=== PATIENT | female | born 1980 | race Caucasian/White ===

== ENCOUNTER → 2017-03-21 | Outpatient (CLI) | payer OTHER ==
[~2017-03-21] MED LIST: ANUSOL-HC25 MG RC; AUGMENTIN 875 M1 TAB PO; BUPROPION XL300 MG PO; BUT/APAP/CAFF/C1 CAP PO; CIPRO500 MG PO; CLARITIN10 MG PO; MOTRIN800 MG PO; Motrin,Rufen800 MG PO; NAPROSYN500 MG PO; PROPRANOLOL HCL10 MG PO; PROZAC20 MG PO; ZITHROMAX Z PA250 MG PO; [UNRECOGNIZED DRUG - OTHER] PO
== END ==
LOC: MRI 14:45
DX: E27.9 Disorder of adrenal gland, unspecified (principal)

== ENCOUNTER 2017-03-26 09:24 | Emergency (ER) | payer OTHER ==
[~2017-03-26] VITALS: Wt 95.3 kg
[2017-03-26 09:35] VITALS: BP 164/94
[2017-03-26] MEDS ORDERED: CLINDAMYCIN HC300 MG PO (09:44)
[2017-03-26] MEDS ORDERED: LIDEX 0.05% CRE15 GM T (09:44)
== END 2017-03-26 09:49 | disposition home or self-care (01) ==
LOC: ED 09:24
DX: S50.861A Insect bite (nonvenomous) of right forearm, initial encounter (principal); L03.113 Cellulitis of right upper limb; F17.200 Nicotine dependence, unspecified, uncomplicated; Z88.0 Allergy status to penicillin; X58.XXXA Exposure to other specified factors, initial encounter; Y93.9 Activity, unspecified; Y92.9 Unspecified place or not applicable; Y99.9 Unspecified external cause status

== ENCOUNTER → 2017-04-24 | Outpatient (CLI) | payer OTHER ==
[~2017-04-24] MED LIST changes: +CLINDAMYCIN HC300 MG PO; +LIDEX 0.05% CRE15 GM T
[2017-04-25 07:06] LABS: RHEUMATOID ARTHRITIS FACTOR 11.3 IU/mL (0.0-13.9)
[2017-04-25 17:11] LABS: LYME AB/TOTAL IMMUNOGLOBULINS <0.91 ISR (0.00-0.90)
== END | disposition home or self-care (01) ==
LOC: LAB 14:21
PROVIDERS: Family Medicine
DX: E55.9 Vitamin D deficiency, unspecified (principal); M25.50 Pain in unspecified joint; M79.1 Myalgia

== ENCOUNTER → 2017-05-30 | Outpatient (CLI) | payer OTHER | END | disposition home or self-care (01) | LOC: RAD 14:26 | DX: M54.5 Low back pain (principal) ==

== ENCOUNTER → 2018-01-08 | Outpatient (CLI) | payer OTHER | END | disposition home or self-care (01) | LOC: RAD 15:56 | DX: R05 Cough (principal); F17.200 Nicotine dependence, unspecified, uncomplicated ==

== ENCOUNTER → 2018-04-15 | Outpatient (CLI) | payer OTHER | END | disposition home or self-care (01) | LOC: US 04-12 09:30 | DX: K76.0 Fatty (change of) liver, not elsewhere classified (principal) ==

== ENCOUNTER → 2018-05-30 | Outpatient (CLI) | payer OTHER ==
[2018-05-31 14:10] LABS: EPSTEIN-BARR VCA IGM AB <36.0 U/mL (0.0-35.9)
== END | disposition home or self-care (01) ==
LOC: LAB 11:04
PROVIDERS: Family Medicine
DX: R53.83 Other fatigue (principal)

== ENCOUNTER → 2018-10-15 | Outpatient (CLI) | payer OTHER | END | disposition home or self-care (01) | LOC: RAD 15:26 | DX: S39.92XA Unspecified injury of lower back, initial encounter (principal); M53.3 Sacrococcygeal disorders, not elsewhere classified; M54.5 Low back pain; X58.XXXA Exposure to other specified factors, initial encounter; Y93.89 Activity, other specified; Y92.89 Other specified places as the place of occurrence of the external cause; Y99.8 Other external cause status ==

== ENCOUNTER → 2018-11-12 | Outpatient (CLI) | payer OTHER ==
[2018-11-12 13:14] LABS: HEMATOCRIT 47.6 % (37.0-47.0); HEMOGLOBIN 16.1 g/dl (12.0-16.0); MEAN CELL VOLUME 92.1 fl (81.0-99.0); MEAN CORPUSCULAR HGB 31.1 pg (27.0-31.0); MEAN CORPUSCULAR HGB CONC 33.8 g/dl (33.0-37.0); MEAN PLATELET VOLUME 11.5 fl (9.6-12.3); RED BLOOD COUNT 5.17 10*6/uL (4.10-5.10); RED CELL DISTRI WIDTH 13.3 % (0-14.5); WHITE BLOOD COUNT 10.4 10*3/uL (4.8-10.8)
[2018-11-12 13:29] LABS: ALBUMIN 3.8 gm/dl (3.1-4.5); ALKALINE PHOSPHATASE 76 U/L (45-117); BUN 9 mg/dl (7-24); CHLORIDE 112 mmol/L (98-107); CPK 38 U/L (26-192); CREATININE 0.68 mg/dL (0.55-1.02); POTASSIUM 3.7 mmol/L (3.5-5.1); SGOT/AST 6 IU/L (3-35); SGPT/ALT 17 U/L (12-78); SODIUM 143 mmol/L (136-145); TOTAL PROTEIN 7.8 gm/dL (6.4-8.2)
[2018-11-13 08:12] LABS: RHEUMATOID ARTHRITIS FACTOR 12.4 IU/mL (0.0-13.9)
[2018-11-13 22:05] LABS: TESTOSTERONE FREE, (DIRECT) 1.1 pg/mL (0.0-4.2)
== END | disposition home or self-care (01) ==
LOC: LAB 12:38
PROVIDERS: Family Medicine
DX: E55.9 Vitamin D deficiency, unspecified (principal); M25.569 Pain in unspecified knee; M54.9 Dorsalgia, unspecified; R63.5 Abnormal weight gain; R53.83 Other fatigue

== ENCOUNTER 2018-12-31 17:55 | Emergency (ER) | payer OTHER ==
[~2018-12-31] VITALS: Ht 172.7 cm; Wt 111.1 kg
[2018-12-31 17:59] VITALS: BP 135/78
[2018-12-31] MEDS ORDERED: DULOXETINE HCL30 MG PO (18:05)
[2018-12-31] MEDS ORDERED: TOPIRAMATE50 M2 PO (18:05)
[2018-12-31] MEDS ORDERED: LYRICA150 M1 PO (18:05)
[2018-12-31] MEDS ORDERED: SEPTDS PO (18:15)
== END 2018-12-31 18:28 | disposition home or self-care (01) ==
LOC: ED 17:55
DX: L02.411 Cutaneous abscess of right axilla (principal); L73.2 Hidradenitis suppurativa; H60.01 Abscess of right external ear; L02.811 Cutaneous abscess of head [any part, except face]; Z88.0 Allergy status to penicillin; Z79.899 Other long term (current) drug therapy

== ENCOUNTER 2019-08-17 02:03 | Emergency (ER) | payer OTHER ==
[~2019-08-17] VITALS: Ht 172.7 cm; Wt 113.4 kg
[~2019-08-17 02:03] MED LIST changes: +DULOXETINE HCL30 MG PO; +LYRICA150 M1 PO; +SEPTDS PO; +TOPIRAMATE50 M2 PO
[2019-08-17 02:05] VITALS: BP 158/92
[2019-08-17 03:09] LABS: BASO # 0.1 10*3/uL (0.0-0.1); BASO % 0.5 % (0.0-1.0); EOS # 0.5 10*3/uL (0.0-0.4); EOS % 5.5 % (1.0-4.0); HEMOGLOBIN 14.5 g/dl (12.0-16.0); LYMPH # 1.3 10*3/uL (1.3-4.4); LYMPH % 13.4 % (27.0-41.0); MEAN CELL VOLUME 93.8 fl (81.0-99.0); MEAN CORPUSCULAR HGB 30.2 pg (27.0-31.0); MEAN CORPUSCULAR HGB CONC 32.2 g/dl (33.0-37.0); MEAN PLATELET VOLUME 10.8 fl (9.6-12.3); MONO # 0.8 10*3/uL (0.1-1.0); MONO % 7.9 % (3.0-9.0); NEUT % 72.4 % (47.0-73.0); PLATELET COUNT AUTOMATED 232 10*3/uL (130-400); WHITE BLOOD COUNT 9.7 10*3/uL (4.8-10.8)
[2019-08-17 03:21] LABS: BUN 8 mg/dl (7-24); CHLORIDE 106 mmol/L (98-107); CREATININE 0.62 mg/dL (0.55-1.02); POTASSIUM 4.1 mmol/L (3.5-5.1); SODIUM 140 mmol/L (136-145)
[2019-08-17] MEDS ORDERED: ZOFRAN4 MG PO (03:34)
[2019-08-17] MEDS ORDERED: IMITREX100 MG PO (03:34)
[2019-08-17] MEDS ORDERED: Motrin,Rufen800 MG PO (03:34)
== END 2019-08-17 03:54 | disposition home or self-care (01) ==
LOC: ED 02:03
PROVIDERS: Emergency Medicine Emergency Medical Services
DX: G43.909 Migraine, unspecified, not intractable, without status migrainosus (principal); M54.9 Dorsalgia, unspecified; Z88.0 Allergy status to penicillin; Z79.899 Other long term (current) drug therapy; Z87.891 Personal history of nicotine dependence

== ENCOUNTER → 2019-08-26 | Outpatient (CLI) | payer OTHER ==
[~2019-08-26] MED LIST changes: +IMITREX100 MG PO; +ZOFRAN4 MG PO
== END | disposition home or self-care (01) ==
LOC: CARD 11:52
DX: R06.02 Shortness of breath (principal); R53.83 Other fatigue

== ENCOUNTER → 2020-08-03 | Outpatient (CLI) | payer OTHER ==
[2020-08-03 13:38] LABS: HEMATOCRIT 49.5 % (37.0-47.0); MEAN CELL VOLUME 88.1 fl (81.0-99.0); MEAN CORPUSCULAR HGB 28.8 pg (27.0-31.0); MEAN CORPUSCULAR HGB CONC 32.7 g/dl (33.0-37.0); MEAN PLATELET VOLUME 11.1 fl (9.6-12.3); RED BLOOD COUNT 5.62 10*6/uL (4.10-5.10); RED CELL DISTRI WIDTH 14.7 % (0-14.5); WHITE BLOOD COUNT 10.2 10*3/uL (4.8-10.8)
[2020-08-03 13:53] LABS: ALBUMIN 3.4 gm/dl (3.1-4.5); ALKALINE PHOSPHATASE 83 U/L (45-117); BUN 9 mg/dl (7-24); CHLORIDE 108 mmol/L (98-107); CHOLESTEROL 157 mg/dL (<200); CREATININE 0.67 mg/dL (0.55-1.02); FREE T4 0.83 ng/dl (0.76-1.46); HDL CHOLESTEROL 45 mg/dl (40-60); LDL CHOLESTEROL 83 mg/dL (9-159); POTASSIUM 3.9 mmol/L (3.5-5.1); SGOT/AST 9 IU/L (3-35); SGPT/ALT 16 U/L (12-78); SODIUM 141 mmol/L (136-145); TOTAL PROTEIN 7.4 gm/dL (6.4-8.2); TRIGLYCERIDES 145 mg/dl (<150); VLDL CHOLESTEROL 29 mg/dL (6-40)
[2020-08-03 14:32] LABS: VITAMIN D, 25-HYDROXY 12.9 ng/mL (30-100)
== END | disposition home or self-care (01) ==
LOC: LAB 13:15
PROVIDERS: ATTEND Family Medicine
DX: E55.9 Vitamin D deficiency, unspecified (principal); R53.83 Other fatigue; R60.0 Localized edema; R25.2 Cramp and spasm

== ENCOUNTER 2022-02-12 00:34 | Emergency (ER) | payer OTHER ==
[~2022-02-12] VITALS: Ht 175.2 cm
[2022-02-12 00:34] VITALS: BP 152/84
[2022-02-12] MEDS ORDERED: BUSPAR5 MG PO (00:52)
[2022-02-12 01:37] LABS: HEMATOCRIT 50.6 % (37.0-47.0); MEAN CELL VOLUME 89.2 fl (81.0-99.0); MEAN CORPUSCULAR HGB 30.2 pg (27.0-31.0); MEAN CORPUSCULAR HGB CONC 33.8 g/dl (33.0-37.0); MEAN PLATELET VOLUME 11.7 fl (9.6-12.3); PLATELET COUNT AUTOMATED 207 10*3/uL (130-400); RED BLOOD COUNT 5.67 10*6/uL (4.10-5.10); RED CELL DISTRI WIDTH 13.3 % (0-14.5); WHITE BLOOD COUNT 15.7 10*3/uL (4.8-10.8)
[2022-02-12 01:38] LABS: BILIRUBIN Negative (Negative); BLOOD 2+ (Negative); CLARITY Clear (Clear); COLOR Yellow (Yellow); GLUCOSE Negative (Negative); KETONE 4+ (Negative); LEUKO ESTERASE Negative (Negative); NITRITE Negative (Negative); SPECIFIC GRAVITY 1.025 (1.001-1.030)
[2022-02-12 01:42] LABS: MANUAL DIFF REFLEX YES
[2022-02-12 01:51] LABS: BUN 10 mg/dl (7-24); CHLORIDE 105 mmol/L (98-107); POTASSIUM 3.4 mmol/L (3.5-5.1); SODIUM 139 mmol/L (136-145)
[2022-02-12 02:06] LABS: BACTERIA 1+
[2022-02-12] MEDS ORDERED: FLOMAX0.4 MG PO (02:14)
[2022-02-12] MEDS ORDERED: ZOFRAN4 MG PO (02:14)
[2022-02-12 02:26] LABS: PLATELET SUFFICIENCY NORMAL (NORMAL); TOTAL CELLS COUNTED 100 #CELLS
[2022-02-12 02:27] LABS: OVALOCYTES FEW
== END 2022-02-12 02:18 | disposition home or self-care (01) ==
LOC: ED 00:34
PROVIDERS: Internal Medicine
DX: N13.2 Hydronephrosis with renal and ureteral calculous obstruction (principal); E87.6 Hypokalemia; Z88.0 Allergy status to penicillin; Z79.899 Other long term (current) drug therapy

== ENCOUNTER → 2022-03-10 | Outpatient (CLI) | payer OTHER ==
[~2022-03-10] MED LIST changes: +BUSPAR5 MG PO; +FLOMAX0.4 MG PO
[2022-03-10 13:21] LABS: BASO % 0.4 % (0.0-1.0); EOS # 0.1 10*3/uL (0.0-0.4); EOS % 1.5 % (1.0-4.0); LYMPH % 23.1 % (27.0-41.0); MEAN CELL VOLUME 88.5 fl (81.0-99.0); MEAN CORPUSCULAR HGB 29.5 pg (27.0-31.0); MEAN CORPUSCULAR HGB CONC 33.3 g/dl (33.0-37.0); MEAN PLATELET VOLUME 11.6 fl (9.6-12.3); MONO # 0.7 10*3/uL (0.1-1.0); MONO % 8.2 % (3.0-9.0); NEUT # 5.6 10*3/uL (2.3-7.9); NEUT % 66.7 % (47.0-73.0); PLATELET COUNT AUTOMATED 233 10*3/uL (130-400); RED BLOOD COUNT 5.76 10*6/uL (4.10-5.10); RED CELL DISTRI WIDTH 13.2 % (0-14.5); WHITE BLOOD COUNT 8.4 10*3/uL (4.8-10.8)
[2022-03-10 13:37] LABS: ALKALINE PHOSPHATASE 74 U/L (45-117); BUN 17 mg/dl (7-24); CHLORIDE 108 mmol/L (98-107); CREATININE 0.88 mg/dL (0.55-1.02); POTASSIUM 4.2 mmol/L (3.5-5.1); SGOT/AST 7 IU/L (3-35); SGPT/ALT 17 U/L (12-78); SODIUM 139 mmol/L (136-145); TOTAL PROTEIN 7.4 gm/dL (6.4-8.2)
[2022-03-13 16:07] LABS: CREATININE, RANDOM URINE 82.2 mg/dL (Not Estab.)
[2022-03-13 16:07] LABS: CREATININE, RANDOM URINE 87.4 mg/dL (Not Estab.)
[2022-03-16 19:06] LABS: METANEPHRINE, PLASMA <10.0 pg/mL (0.0-88.0); NORMETANEPHRINE, PLASMA 125.5 pg/mL (0.0-210.1)
[2022-03-18 00:06] LABS: VMA RANDOM 2.5 mg/L (Undefined)
== END | disposition home or self-care (01) ==
LOC: LAB 12:13
PROVIDERS: ATTEND Urology
DX: E27.9 Disorder of adrenal gland, unspecified (principal)

== ENCOUNTER → 2022-03-24 | Outpatient (CLI) | payer OTHER ==
[2022-03-24 10:06] LABS: BASO % 0.3 % (0.0-1.0); EOS # 0.1 10*3/uL (0.0-0.4); EOS % 1.5 % (1.0-4.0); HEMATOCRIT 48.5 % (37.0-47.0); LYMPH # 1.2 10*3/uL (1.3-4.4); LYMPH % 16.2 % (27.0-41.0); MEAN CELL VOLUME 88.2 fl (81.0-99.0); MEAN CORPUSCULAR HGB 29.5 pg (27.0-31.0); MEAN CORPUSCULAR HGB CONC 33.4 g/dl (33.0-37.0); MEAN PLATELET VOLUME 11.3 fl (9.6-12.3); MONO # 0.6 10*3/uL (0.1-1.0); MONO % 8.4 % (3.0-9.0); NEUT # 5.2 10*3/uL (2.3-7.9); NEUT % 73.2 % (47.0-73.0); PLATELET COUNT AUTOMATED 209 10*3/uL (130-400); RED CELL DISTRI WIDTH 12.9 % (0-14.5); WHITE BLOOD COUNT 7.2 10*3/uL (4.8-10.8)
[2022-03-24 10:15] LABS: BILIRUBIN Negative (Negative); BLOOD Negative (Negative); CLARITY Clear (Clear); COLOR Yellow (Yellow); GLUCOSE Negative (Negative); KETONE Negative (Negative); LEUKO ESTERASE Negative (Negative); NITRITE Negative (Negative); SPECIFIC GRAVITY >= 1.030 (1.001-1.030); UROBILINOGEN 0.2 E.U./dl (0.0-1.0)
[2022-03-24 10:26] LABS: ALKALINE PHOSPHATASE 78 U/L (45-117); BUN 17 mg/dl (7-24); CHLORIDE 110 mmol/L (98-107); CREATININE 0.88 mg/dL (0.55-1.02); POTASSIUM 4.5 mmol/L (3.5-5.1); SGOT/AST 10 IU/L (3-35); SGPT/ALT 15 U/L (12-78); SODIUM 139 mmol/L (136-145); T3 UPTAKE 33 % (31-39); TOTAL PROTEIN 7.2 gm/dL (6.4-8.2)
[2022-03-24 10:59] LABS: BACTERIA 2+
[2022-03-27 16:07] LABS: CREATININE, RANDOM URINE 140.2 mg/dL (Not Estab.)
[2022-03-27 16:07] LABS: CREATININE, RANDOM URINE 134.7 mg/dL (Not Estab.)
[2022-04-03 17:06] LABS: METANEPHRINE, PLASMA 13.3 pg/mL (0.0-88.0); NORMETANEPHRINE, PLASMA 88.1 pg/mL (0.0-210.1)
[2022-04-06 12:08] LABS: VMA RANDOM 2.9 mg/L (Undefined)
== END | disposition home or self-care (01) ==
LOC: LAB 09:20
PROVIDERS: ATTEND Urology
DX: R53.83 Other fatigue (principal); N20.0 Calculus of kidney; R31.9 Hematuria, unspecified

== ENCOUNTER → 2022-03-31 | Outpatient (CLI) | payer OTHER | END | disposition home or self-care (01) | LOC: US 03-29 15:00 | PROVIDERS: ATTEND Urology | DX: N20.0 Calculus of kidney (principal) ==

== ENCOUNTER → 2022-04-17 | Outpatient (CLI) | payer OTHER | END | disposition home or self-care (01) | LOC: CT 14:39 | PROVIDERS: ATTEND Urology | DX: N13.30 Unspecified hydronephrosis (principal); N20.0 Calculus of kidney; D35.02 Benign neoplasm of left adrenal gland ==

== ENCOUNTER → 2022-08-04 | Outpatient (CLI) | payer OTHER | END | disposition home or self-care (01) | LOC: US 08:16 | PROVIDERS: ATTEND Urology | DX: E27.8 Other specified disorders of adrenal gland (principal); N32.89 Other specified disorders of bladder; N20.0 Calculus of kidney ==

== ENCOUNTER → 2022-08-28 | Outpatient (CLI) | payer OTHER | LOC: LAB 08:07 | PROVIDERS: ATTEND Internal Medicine Endocrinology, Diabetes & Metabolism | DX: E24.9 Cushing's syndrome, unspecified (principal) ==

== ENCOUNTER → 2022-08-29 | Outpatient (CLI) | payer OTHER | LOC: LAB 07:57 | PROVIDERS: ATTEND Internal Medicine Endocrinology, Diabetes & Metabolism | DX: E27.9 Disorder of adrenal gland, unspecified (principal); E03.9 Hypothyroidism, unspecified ==

== ENCOUNTER → 2023-04-07 | Outpatient (CLI) | payer OTHER ==
[2023-04-07 08:44] LABS: MEAN CELL VOLUME 90.7 fl (81.0-99.0); MEAN CORPUSCULAR HGB 30.4 pg (27.0-31.0); MEAN CORPUSCULAR HGB CONC 33.5 g/dl (33.0-37.0); MEAN PLATELET VOLUME 11.2 fl (9.6-12.3); RED BLOOD COUNT 5.29 10*6/uL (4.10-5.10); RED CELL DISTRI WIDTH 12.4 % (0-14.5); WHITE BLOOD COUNT 6.1 10*3/uL (4.8-10.8)
[2023-04-07 09:20] LABS: ALKALINE PHOSPHATASE 74 U/L (46-116); BUN 13 mg/dl (9-23); CHLORIDE 107 mmol/L (98-107); CHOLESTEROL 163 mg/dL (<200); FREE T4 0.95 ng/dl (0.89-1.76); LDL CHOLESTEROL 98 mg/dL (9-159); POTASSIUM 4.4 mmol/L (3.4-5.1); SGPT/ALT 12 U/L (10-49); THYROID STIM HORMONE (HS) 3.208 uIU/ml (0.550-4.780); TOTAL PROTEIN 6.6 gm/dL (6.0-8.0); TRIGLYCERIDES 136 mg/dl (<150)
== END | disposition home or self-care (01) ==
LOC: LAB 08:29
PROVIDERS: ATTEND Family Medicine
DX: Z13.220 Encounter for screening for lipoid disorders (principal); M54.50 Low back pain, unspecified; R60.9 Edema, unspecified; R63.5 Abnormal weight gain

== ENCOUNTER → 2023-06-19 | Outpatient (CLI) | payer OTHER | END | disposition home or self-care (01) | LOC: US 00:31 | PROVIDERS: ATTEND Family Medicine | DX: D35.02 Benign neoplasm of left adrenal gland (principal); M47.817 Spondylosis without myelopathy or radiculopathy, lumbosacral region ==

== ENCOUNTER → 2024-08-11 | Outpatient (CLI) | payer OTHER ==
[2024-08-11 18:08] LABS: MEAN CELL VOLUME 86.8 fl (81.0-99.0); MEAN CORPUSCULAR HGB 28.9 pg (27.0-31.0); MEAN CORPUSCULAR HGB CONC 33.3 g/dl (33.0-37.0); MEAN PLATELET VOLUME 11.5 fl (9.6-12.3); RED BLOOD COUNT 5.99 10*6/uL (4.10-5.10); RED CELL DISTRI WIDTH 15.6 % (0-14.5); WHITE BLOOD COUNT 9.6 10*3/uL (4.8-10.8)
[2024-08-11 18:38] LABS: VITAMIN D, 25-HYDROXY 13.8 ng/mL (30-100)
[2024-08-11 19:00] LABS: ALKALINE PHOSPHATASE 96 U/L (46-116); BUN 12 mg/dl (9-23); CHLORIDE 104 mmol/L (98-107); CHOLESTEROL 171 mg/dL (<200); FREE T4 0.95 ng/dl (0.89-1.76); LDL CHOLESTEROL 100 mg/dL (9-159); POTASSIUM 3.7 mmol/L (3.4-5.1); SGPT/ALT 7 U/L (5-49); TOTAL PROTEIN 6.9 gm/dL (6.0-8.0); TRIGLYCERIDES 139 mg/dl (<150)
== END | disposition home or self-care (01) ==
LOC: LAB 17:52
PROVIDERS: ATTEND Family Medicine
DX: Z00.01 Encounter for general adult medical examination with abnormal findings (principal); E78.00 Pure hypercholesterolemia, unspecified; R53.83 Other fatigue

== ENCOUNTER 2024-12-02 19:14 | Emergency (ER) | payer OTHER ==
[~2024-12-02] VITALS: Ht 172.7 cm; Wt 109.0 kg
[2024-12-02] MEDS ORDERED: ALBUTEROL 8 GM INHALER INH ONE (19:50)
[2024-12-02] MEDS ORDERED: ASPIRIN, CHEWABLE 81 MG TAB PO ONE (19:55)
[2024-12-02 20:29] LABS: BASO % 0.4 % (0.0-1.0); EOS # 0.2 10*3/uL (0.0-0.4); EOS % 3.2 % (1.0-4.0); HEMATOCRIT 49.7 % (37.0-47.0); MEAN CELL VOLUME 86.3 fl (81.0-99.0); MEAN CORPUSCULAR HGB 28.1 pg (27.0-31.0); MEAN CORPUSCULAR HGB CONC 32.6 g/dl (33.0-37.0); MEAN PLATELET VOLUME 11.5 fl (9.6-12.3); MONO # 0.6 10*3/uL (0.1-1.0); MONO % 10.6 % (3.0-9.0); NEUT # 3.3 10*3/uL (2.3-7.9); NEUT % 58.4 % (47.0-73.0); PLATELET COUNT AUTOMATED 216 10*3/uL (130-400); RED BLOOD COUNT 5.76 10*6/uL (4.10-5.10); RED CELL DISTRI WIDTH 13.7 % (0-14.5); WHITE BLOOD COUNT 5.6 10*3/uL (4.8-10.8)
[2024-12-02 20:40] LABS: ACT PARTIAL THROMBO TIME 27.7 SECONDS (20.0-32.1)
[2024-12-02] MEDS ORDERED: Ketorolac Tromethamine 60 MG/2 ML VIAL IM ONE (20:45)
[2024-12-02 20:47] LABS: ALKALINE PHOSPHATASE 82 U/L (46-116); BUN 9 mg/dl (9-23); CHLORIDE 106 mmol/L (98-107); POTASSIUM 3.3 mmol/L (3.4-5.1); TOTAL PROTEIN 7.1 gm/dL (6.0-8.0)
[2024-12-02 20:48] LABS: SGPT/ALT < 7 U/L (5-49)
[2024-12-02] MEDS ORDERED: POTASSIUM CHLORIDE 20 MEQ TAB PO ONE (21:10)
[2024-12-02 21:23] VITALS: BP 155/88
[2024-12-02] MEDS ORDERED: Albuterol Sulfate 2.5 MG/3 ML VIAL NEB ONE (22:05)
[2024-12-02] MEDS ORDERED: predniSONE 20 MG TAB PO ONE (23:15)
[2024-12-02] MEDS ORDERED: Doxycycline Hyclate 100 MG 2 TAB ED PACK PO SCH (23:15)
[2024-12-02] MEDS ORDERED: VIBRAMYCIN100 MG PO (23:45)
[2024-12-02] MEDS ORDERED: PREDNISONE20 M1 PO (23:45)
== END 2024-12-02 23:41 | disposition home or self-care (01) ==
LOC: ED 19:14
PROVIDERS: Nurse Practitioner
DX: J40 Bronchitis, not specified as acute or chronic (principal); Z20.822 Contact with and (suspected) exposure to COVID-19; E87.5 Hyperkalemia; N76.4 Abscess of vulva; Z88.0 Allergy status to penicillin; Z79.899 Other long term (current) drug therapy

== ENCOUNTER 2025-02-11 18:17 | Emergency (ER) | payer OTHER ==
[~2025-02-11] VITALS: Wt 108.9 kg
[~2025-02-11 18:17] MED LIST changes: +PREDNISONE20 M1 PO; +VIBRAMYCIN100 MG PO
[2025-02-11] MEDS ORDERED: methylPREDNISolone sod succ 125 MG VIAL IM ONE (18:40)
[2025-02-11] MEDS ORDERED: Albuterol Sulf/Ipratropium 3 ML VIAL NEB ONE (18:40)
[2025-02-11 19:07] LABS: BASO % 0.3 % (0.0-1.0); EOS # 0.1 10*3/uL (0.0-0.4); EOS % 1.5 % (1.0-4.0); HEMATOCRIT 45.6 % (37.0-47.0); MEAN CELL VOLUME 87.2 fl (81.0-99.0); MEAN CORPUSCULAR HGB 27.5 pg (27.0-31.0); MEAN CORPUSCULAR HGB CONC 31.6 g/dl (33.0-37.0); MEAN PLATELET VOLUME 10.8 fl (9.6-12.3); MONO # 0.9 10*3/uL (0.1-1.0); MONO % 11.7 % (3.0-9.0); NEUT # 5.5 10*3/uL (2.3-7.9); PLATELET COUNT AUTOMATED 201 10*3/uL (130-400); RED BLOOD COUNT 5.23 10*6/uL (4.10-5.10); RED CELL DISTRI WIDTH 15.5 % (0-14.5)
[2025-02-11] MEDS ORDERED: PREGABALIN150 MG PO (19:17)
[2025-02-11] MEDS ORDERED: AIRSUPRA 90-810.7 GM INH (19:17)
[2025-02-11] MEDS ORDERED: HYDRALAZINE HYD50 MG PO (19:18)
[2025-02-11] MEDS ORDERED: LOSARTAN POTAS100 M1 PO (19:18)
[2025-02-11] MEDS ORDERED: BUMETANIDE2 MG PO (19:18)
[2025-02-11 19:26] LABS: BUN 13 mg/dl (9-23); CHLORIDE 106 mmol/L (98-107); POTASSIUM 3.5 mmol/L (3.4-5.1)
[2025-02-11 19:27] LABS: B-hCG (QUALITATIVE) NEGATIVE (NEGATIVE)
[2025-02-11 19:57] VITALS: BP 117/73
[2025-02-11] MEDS ORDERED: PREDNISONE10 MG PO (20:46)
== END 2025-02-11 20:52 | disposition home or self-care (01) ==
LOC: ED 18:17
PROVIDERS: Physician Assistant Medical
DX: J20.9 Acute bronchitis, unspecified (principal); I10 Essential (primary) hypertension; K21.9 Gastro-esophageal reflux disease without esophagitis; G43.909 Migraine, unspecified, not intractable, without status migrainosus; R60.0 Localized edema; M25.512 Pain in left shoulder; F17.200 Nicotine dependence, unspecified, uncomplicated; Z87.442 Personal history of urinary calculi; Z88.0 Allergy status to penicillin; Z98.51 Tubal ligation status; Z98.890 Other specified postprocedural states

== ENCOUNTER → 2025-02-23 | Outpatient (CLI) | payer OTHER ==
[~2025-02-23] MED LIST changes: +AIRSUPRA 90-810.7 GM INH; +BUMETANIDE2 MG PO; +HYDRALAZINE HYD50 MG PO; +LOSARTAN POTAS100 M1 PO; +PREDNISONE10 MG PO; +PREGABALIN150 MG PO
[2025-02-23 13:30] LABS: HEMATOCRIT 47.5 % (37.0-47.0); MEAN CELL VOLUME 87.8 fl (81.0-99.0); MEAN CORPUSCULAR HGB 27.4 pg (27.0-31.0); MEAN CORPUSCULAR HGB CONC 31.2 g/dl (33.0-37.0); MEAN PLATELET VOLUME 11.2 fl (9.6-12.3); RED BLOOD COUNT 5.41 10*6/uL (4.10-5.10); RED CELL DISTRI WIDTH 15.9 % (0-14.5); WHITE BLOOD COUNT 11.2 10*3/uL (4.8-10.8)
[2025-02-23 14:05] LABS: ALKALINE PHOSPHATASE 77 U/L (46-116); BUN 13 mg/dl (9-23); CHLORIDE 108 mmol/L (98-107); CHOLESTEROL 151 mg/dL (<200); CPK 31 U/L (34-171); FREE T4 1.22 ng/dl (0.89-1.76); LDL CHOLESTEROL 76 mg/dL (9-159); POTASSIUM 3.9 mmol/L (3.4-5.1); SGPT/ALT 13 U/L (5-49); TOTAL PROTEIN 6.7 gm/dL (6.0-8.0); TRIGLYCERIDES 59 mg/dl (<150)
[2025-02-23 14:09] LABS: VITAMIN D, 25-HYDROXY 13.8 ng/mL (30-100)
== END | disposition home or self-care (01) ==
LOC: US 12:00
PROVIDERS: ATTEND Family Medicine
DX: R22.42 Localized swelling, mass and lump, left lower limb (principal); E78.00 Pure hypercholesterolemia, unspecified; E55.9 Vitamin D deficiency, unspecified; E74.9 Disorder of carbohydrate metabolism, unspecified; R53.83 Other fatigue; R06.2 Wheezing; R63.5 Abnormal weight gain

== ENCOUNTER → 2025-08-10 | Outpatient (CLI) | payer SELFPAY | LOC: RAD 11:02 | PROVIDERS: ATTEND Family Medicine | DX: J90 Pleural effusion, not elsewhere classified (principal); R06.02 Shortness of breath ==